=== PATIENT | female | born 1950 | race Caucasian/White ===

== ENCOUNTER → 2018-11-11 | Day surgery (SDC) | payer MEDICARE, OTHER ==
[2018-11-07 14:56] LABS: BASOPHILS # (AUTO) 0.1 (0.0-0.1); BASOPHILS % 0.6 % (0.0-1.0); EOSINOPHILS # (AUTO) 0.1 (0.0-0.4); EOSINOPHILS % 0.8 % (0.0-6.0); HEMOGLOBIN 12.7 g/dL (12.0-16.0); LYMPHOCYTES # (AUTO) 1.8 (1.0-3.2); LYMPHOCYTES % 21.4 % (18.0-39.1); MEAN CORPUSCULAR HEMOGLOBIN 29.5 pg (28-32); MEAN CORPUSCULAR HGB CONC 32.6 g/dL (31-35); MEAN CORPUSCULAR VOLUME 90.7 fL (81-99); MONOCYTES # (AUTO) 0.6 (0.2-0.8); MONOCYTES % 7.2 % (4.4-11.3); NEUTROPHILS # (AUTO) 5.9 (2.1-6.9); NEUTROPHILS % 69.5 % (38.7-80.0); PLATELET COUNT 345 x10e3/uL (140-360); RED CELL DISTRIBUTION WIDTH 12.9 % (11.7-14.4)
[~2018-11-11] MED LIST: ACID REFLUX MED PO; ADDERALL 10 MG10 MG PO; ADIPEX-P37.5 MG PO; BUPIVACAINE HCL 0.5% INJ 30 ML VIAL INJ ONE; CLONAZEPAM1 MG PO; FENTANYL CITRATE/PF 100MCG/2 ML INJ ONE; IOPAMIDOL 610MG/1ML 300 MG/ML VIAL IV ONE; LIDOCAINE HCL 1% LOCAL INJ 20 ML VIAL ONE; MECLIZINE HCL12.5 MG PO; MIDAZOLAM HCL 2 MG/2 ML VIAL ONE; NORCO 7.5-3251 EACH PO; PROPOFOL IV EMULSION 10 MG/ML 20 ML VIAL ONE; PROZAC20 MG PO; TIZANIDINE HCL2 M1 PO; TRIAMCINOLONE ACET 40 MG/ML VIAL ONE; VITAMIN B PLUS PO; VITAMIN C PO; VITAMIN D400 UNIT PO; VYVANSE70 MG PO; XANAX1 MG PO; ZOLOFT100 MG PO
[2018-11-11 07:50] VITALS: BP 109/51
--- NOTE | 2018-11-11 14:07 | Operative Report ---
DATE OF PROCEDURE: 11/11/2018 SURGEON: João Gutierrez MD PREOPERATIVE DIAGNOSES: Osteoarthritis of the right hip and spondylosis of the lumbar spine. POSTOPERATIVE DIAGNOSES: Osteoarthritis of the right hip and spondylosis of the lumbar spine. PROCEDURE: Fluoroscopic guided corticosteroid injection of the right hip. INDICATIONS: The patient is a 68-year-old lady, who has problems in her low back and her right hip. We have discussed the findings and options. The possibility of a right hip replacement was explained. In order to distinguish how much of her pain is coming from her hip versus her back, we have recommended a fluoroscopic-guided injection. The risks and benefits have been explained. She states she understands and wishes to proceed. PROCEDURE IN DETAIL: The patient was brought to the procedure room. She was given a MAC anesthetic. Her right hip was prepped and draped in a sterile manner. A preoperative time-out was performed. A C-arm image intensifier was used to assist in placing a spinal needle into the inferior recess of the right hip joint. A small amount of synovial fluid was aspirated from the joint. Further confirmation of intra-articular positioning was accomplished with an injection of a very small amount of radiopaque dye. A mixture of 9 mL of 0.5% Marcaine and 40 mg of Solu-Medrol were then injected into the hip joint. The needle was retrieved and a Band-Aid was applied. She was transported to the recovery room in stable condition. There was no blood loss and all needle and sponge counts were correct. João Gutierrez MD DR/MARY /[id number]
== END | disposition home or self-care (01) ==
LOC: OR 05:00
PROVIDERS: ATTEND Specialist
DX: M16.11 Unilateral primary osteoarthritis, right hip (principal); M47.816 Spondylosis without myelopathy or radiculopathy, lumbar region; J44.9 Chronic obstructive pulmonary disease, unspecified; K21.9 Gastro-esophageal reflux disease without esophagitis; E78.5 Hyperlipidemia, unspecified; F41.9 Anxiety disorder, unspecified; F31.9 Bipolar disorder, unspecified; F17.210 Nicotine dependence, cigarettes, uncomplicated; Z88.6 Allergy status to analgesic agent; Z88.2 Allergy status to sulfonamides; Z88.8 Allergy status to other drugs, medicaments and biological substances; Z01.810 Encounter for preprocedural cardiovascular examination; Z01.812 Encounter for preprocedural laboratory examination; Z68.31 Body mass index [BMI] 31.0-31.9, adult
CPT/HCPCS: 20610; 36415; 77002; 85025; 93005; J2250; J2704; J3010; J3301; Q9967; 76000; J2001

== ENCOUNTER 2018-11-27 07:38 | Emergency (ER) | payer MEDICARE, OTHER ==
[~2018-11-27] VITALS: Ht 157.5 cm; Wt 84.8 kg
[~2018-11-27 07:38] MED LIST changes: -BUPIVACAINE HCL 0.5% INJ 30 ML VIAL INJ ONE; -FENTANYL CITRATE/PF 100MCG/2 ML INJ ONE; -IOPAMIDOL 610MG/1ML 300 MG/ML VIAL IV ONE; -LIDOCAINE HCL 1% LOCAL INJ 20 ML VIAL ONE; -MIDAZOLAM HCL 2 MG/2 ML VIAL ONE; -PROPOFOL IV EMULSION 10 MG/ML 20 ML VIAL ONE; -TRIAMCINOLONE ACET 40 MG/ML VIAL ONE
[2018-11-27] MEDS ORDERED: FLUORESCEIN SOD(OPTH) 1 MG STRP OP ONE (08:00)
[2018-11-27] MEDS ORDERED: TETRACAINE HCL 0.5% OPTH SOLN 4 ML BTL OP ONE (08:00)
[2018-11-27] MEDS ORDERED: ERYTHROMYCIN (OPTH) 3.5 GM OINT OP ONE (08:30)
== END 2018-11-27 09:17 | disposition home or self-care (01) ==
LOC: ER 07:38
DX: H57.12 Ocular pain, left eye (principal); H16.012 Central corneal ulcer, left eye
CPT/HCPCS: 99283

== ENCOUNTER 2019-01-27 10:00 | Inpatient (IN) | payer MEDICARE, OTHER ==
[2019-01-26 13:09] LABS: BASOPHILS # (AUTO) 0.1 (0.0-0.1); BASOPHILS % 0.7 % (0.0-1.0); EOSINOPHILS # (AUTO) 0.1 (0.0-0.4); EOSINOPHILS % 1.2 % (0.0-6.0); HEMATOCRIT 44.2 % (34.2-44.1); HEMOGLOBIN 14.6 g/dL (12.0-16.0); LYMPHOCYTES # (AUTO) 2.6 (1.0-3.2); LYMPHOCYTES % 23.5 % (18.0-39.1); MEAN CORPUSCULAR HEMOGLOBIN 29.5 pg (28-32); MEAN CORPUSCULAR VOLUME 89.3 fL (81-99); MONOCYTES # (AUTO) 0.7 (0.2-0.8); MONOCYTES % 6.2 % (4.4-11.3); NEUTROPHILS # (AUTO) 7.6 (2.1-6.9); PLATELET COUNT 443 x10e3/uL (140-360); RED BLOOD COUNT 4.95 x10e6/uL (3.6-5.1)
--- NOTE | 2019-01-26 13:28 | Diagnostic Imaging Report ---
EXAMINATION: CHEST 2 VIEWS INDICATION: Pre-operative COMPARISON: None FINDINGS: LINES/TUBES:None LUNGS:Mildly hyperinflated lungs. No focal pneumonia or pulmonary edema. PLEURA:No pleural effusion or pneumothorax. MEDIASTINUM:The cardiomediastinal silhouette appears normal in size and shape. Atherosclerotic calcifications of the thoracic aorta. BONES/SOFT TISSUES:No acute osseous injury. ABDOMEN:No free air under the diaphragm. Status post cholecystectomy. IMPRESSION: No focal pneumonia or pulmonary edema. Signed by: Joel Puente MD on 01/26/2019 1:25 PM
[~2019-01-27] VITALS: Ht 157.5 cm; Wt 74.8 kg
[~2019-01-27 10:00] MED LIST changes: +ABILIFY5 MG PO; +ASPIR 8181 MG PO; +ATORVASTATIN CA20 MG PO; +EXCEDRIN MIGRA1 EAC3 PO; +FENOFIBRATE145 MG PO; +NICODERM CQ1 EAC1 TD; +ROPIVACAINE 246.25 MG, EPINEPHRINE HCL 1:1000 1ML 0.5 MG, CLONIDINE HCL 0.08 MG, KETORO... INJ ONE; +SUPER B COMPLE1 EACH PO; +SYMBICORT 16010.2 GM INH; +TUMERIC PO; +XIFAXAN550 MG PO
--- OUTSIDE RECORDS SUMMARY | 2019-01-27 10:20 | XMS REPORT ---
[facility] Address Unknown Phone Unavailable Care Team Providers Care [employer] Support Teacher Name Role Phone SABINE SANTANA Unavailable Unavailable Problems This patient has no known problems. Allergies, Adverse Reactions, Alerts This patient has no known allergies or adverse reactions. Medications This patient has no known medications. Results Test Description Test Time Test Comments Text Results Atomic Results Result Comments CHEST 2 VIEWS 2019-01-26 13:24:00 [facility] [address] [place] [address] Patient Name: GAGANDEEP CARLTON MR #: [id number] : 1950 Age/Sex: 68/F Req #: [id number] Adm Physician: Ordered by: SABINE SANTANA MD Report #: [id number] Location: OR Room/Bed: Procedure: [id number] DX/CHEST 2 VIEWS Exam Date: 01/26/19 Exam Time: 1300 REPORT STATUS: Signed EXAMINATION: CHEST 2 VIEWS INDICATION: Pre-operative COMPARISON: None FINDINGS: LINES/TUBES:None LUNGS:Mildly hyperinflated lungs. No focal pneumonia or pulmonary edema. PLEURA:No pleural effusion or pneumothorax. MEDIASTINUM:The cardiomediastinal silhouette appears normal in size and shape. Atherosclerotic calcifications of the thoracic aorta. BONES/SOFT TISSUES:No acute osseous injury. ABDOMEN:No free air under the diaphragm. Status post cholecystectomy. IMPRESSION: No focal pneumonia or pulmonary edema. Signed by: Misbah Puente MD on 01/26/2019 1:25 PM Dictated By: MISBAH UPENTE MD [id number] Transcribed By: EMMA on 01/26/19 1325 COPY TO: SABINE SANTANA MD
[2019-01-27 10:28] LABS: BASOPHILS # (AUTO) 0.1 (0.0-0.1); BASOPHILS % 0.5 % (0.0-1.0); EOSINOPHILS # (AUTO) 0.1 (0.0-0.4); EOSINOPHILS % 0.8 % (0.0-6.0); HEMATOCRIT 43.5 % (34.2-44.1); HEMOGLOBIN 14.4 g/dL (12.0-16.0); LYMPHOCYTES # (AUTO) 2.2 (1.0-3.2); LYMPHOCYTES % 18.1 % (18.0-39.1); MEAN CORPUSCULAR HEMOGLOBIN 29.6 pg (28-32); MEAN CORPUSCULAR HGB CONC 33.1 g/dL (31-35); MEAN CORPUSCULAR VOLUME 89.5 fL (81-99); MONOCYTES # (AUTO) 0.6 (0.2-0.8); MONOCYTES % 5.4 % (4.4-11.3); NEUTROPHILS # (AUTO) 8.9 (2.1-6.9); NEUTROPHILS % 74.8 % (38.7-80.0); PLATELET COUNT 418 x10e3/uL (140-360); RED BLOOD COUNT 4.86 x10e6/uL (3.6-5.1); RED CELL DISTRIBUTION WIDTH 12.9 % (11.7-14.4)
[2019-01-27] MEDS ORDERED: BUPIVACAINE 7.5MG/ML /DEXTROSE 82.5MG/ML 2 ML AMP INJ ONE (10:28)
[2019-01-27] MEDS ORDERED: BACITRACIN 50,000 UNIT VIAL ONE (10:53)
[2019-01-27] MEDS ORDERED: VANCOMYCIN HCL 1,000 MG ONE (10:53)
[2019-01-27] MEDS ORDERED: TRANEXAMIC ACID 1,000 MG/10 ML ML ONE (10:54)
[2019-01-27] MEDS ORDERED: SODIUM CHLORIDE 0.9% 500ML 500 ML ONE (10:54)
[2019-01-27] MEDS ORDERED: CELECOXIB 200 MG CAP ONE (11:05)
[2019-01-27] MEDS ORDERED: DEXAMETHASONE SOD PHOS 10 MG/1 ML VIAL ONE (11:05)
[2019-01-27] MEDS ORDERED: GABAPENTIN 300 MG CAP ONE (11:05)
[2019-01-27] MEDS ORDERED: CEFAZOLIN SOD 1 GM/NS 50ML 100 ML IV ONE (11:06)
[2019-01-27] MEDS ORDERED: HYDROCODONE/APAP 7.5MG-325MG 1 EA TAB PO PRN (13:00)
[2019-01-27] MEDS ORDERED: ONDANSETRON HCL INJ 2MG/ML 2ML 2 MG/ML VIAL IV PRN (13:00)
[2019-01-27] MEDS ORDERED: PROMETHAZINE HCL (IM) 25 MG/ML VIAL INJ PRN (13:00)
[2019-01-27] MEDS ORDERED: HYDROCODONE/APAP 5MG-325MG TAB PO PRN (13:00)
[2019-01-27] MEDS ORDERED: DOCUSATE SODIUM 100 MG CAP PO PRN (13:00)
[2019-01-27] MEDS ORDERED: ACETAMINOPHEN 650 MG SUPP PR PRN (13:00)
[2019-01-27] MEDS ORDERED: DIPHENHYDRAMINE HCL INJ 50 MG/ML VIAL IM/IV PRN (13:00)
--- NOTE | 2019-01-27 13:53 | NUR ---
received report from chris in [facility] awaiting for pt to arrive to floor
[2019-01-27 13:56] VITALS: BP 117/72
--- NOTE | 2019-01-27 13:56 | NUR ---
RECEIVED PT TO FLOOR AA0X3 PT IS IN NO S.S OF DISTRESS RIGHT HIP DRESSING DRY AND INTACT LEFT LEG HAS STOCKING WILL GET FOOT PUMPS FOR PT FAMILY IS AT BEDSIDE WILL CONTINUE TO MONITOR PT CLOSELY SIDE RAILSX2, BED WHEELS LOCKED, CALL LIGHT IS WITHIN EASY REACH INSTRUCTED TO CALL FOR ASSISTANCE IF NEEDED
--- NOTE | 2019-01-27 14:12 | Diagnostic Imaging Report ---
Pelvis, one view Clinical indications: Status post right total hip arthroplasty Comparison: None Findings: The patient is status post right total hip arthroplasty. Alignment is anatomic. No periprosthetic fractures are identified. Impression: Status post post right total hip arthroplasty. Signed by: Rhett Samuels MD on 01/27/2019 2:08 PM
[2019-01-27 14:19] VITALS: BP 117/72
[2019-01-27] MEDS ORDERED: ONDANSETRON HCL INJ 2MG/ML 2ML 2 MG/ML VIAL ONE (14:41)
[2019-01-27] MEDS ORDERED: DEXAMETHASONE SOD PHOS INJ 4 MG/ML VIAL ONE (14:41)
[2019-01-27] MEDS ORDERED: ACETAMINOPHEN 1000 MG/100 ML IV ONE (14:41)
[2019-01-27] MEDS: SODIUM CHLORIDE 0.9% 1000ML 1,000 ML IV SCH ×2 (15:07→22:59)
[2019-01-27] MEDS: KETOROLAC TROMETHAMINE 30 MG/ML VIAL IV PRN ×2 (15:33→23:00)
--- NOTE | 2019-01-27 15:45 | NUR ---
Called to confirm [facility] with signature [phone]. Left message for andrews to call back to confirm. Addendum: 01/27/19 at 1553 by Darling Briscoe CM spoke with martin at services who has received order, gave her updated phone number of [phone]
--- NOTE | 2019-01-27 15:56 | NUR ---
Spoke with [facility], they do have the order for walker, 3:1 commode and also a brace. Verified that DME will be delivered by 9.
--- NOTE | 2019-01-27 16:00 | NUR ---
PT VOIDED AFTER SURGERY IN BED. LINNENS CHANGED. PLACED PT ON DIAPER FOR INCONTINENCE
[2019-01-27 16:09] VITALS: BP 120/69
--- NOTE | 2019-01-27 16:24 | NUR ---
IMM explained to patient and daughter, daughter signed, original placed on chart, copy given to patient.
[2019-01-27] MEDS ORDERED: CELECOXIB 100 MG CAP PO SCH (17:00)
[2019-01-27] MEDS: ASPIRIN 325 MG TAB PO SCH (17:13)
[2019-01-27] MEDS: ACETAMINOPHEN 1000 MG/100 ML IV SCH ×2 (17:13→23:58)
[2019-01-27] MEDS: CELECOXIB 200 MG CAP PO SCH (17:13)
--- NOTE | 2019-01-27 17:40 | NUR ---
PT FAMILY PRESSED ON CODE BLUE , WHEN ENTERING ROOM PT WAS COUGHING UP HER DINNER. CODE CANCELLED. AFTER BACK THRUSTS PT STATED FEELING BETTER. NOTIFIED MD JOHNSON. CHEST X RAY ORDERED TO RULE OUT ASPIRATION PNA
[2019-01-27] MEDS ORDERED: MIDAZOLAM HCL 2 MG/2 ML VIAL ONE (18:42)
[2019-01-27] MEDS ORDERED: KETAMINE HCL INJ 50 MG/ML 10 ML VIAL ONE (18:42)
[2019-01-27] MEDS ORDERED: FENTANYL CITRATE/PF 100MCG/2 ML INJ ONE (18:42)
--- NOTE | 2019-01-27 18:58 | Diagnostic Imaging Report ---
EXAMINATION: CHEST SINGLE (PORTABLE) INDICATION: ^R/O ASPIRATION ^[id number] ^[id number] COMPARISON: 01/26/2019 FINDINGS: AP view TUBES and LINES: None. LUNGS: Lungs are well inflated. There is no evidence of pneumonia or pulmonary edema. Minimal left basilar subsegmental atelectasis. PLEURA: No pleural effusion or pneumothorax. HEART AND MEDIASTINUM: The cardiomediastinal silhouette is unremarkable. BONES AND SOFT TISSUES: No acute osseous lesion. Soft tissues are unremarkable. UPPER ABDOMEN: No free air under the diaphragm. IMPRESSION: No acute thoracic abnormality. Signed by: Dr. Ben Pretty MD on 01/27/2019 6:55 PM
[2019-01-27] MEDS: CEFAZOLIN SOD 1 GM/NS 50ML 50 ML IV SCH (19:51)
[2019-01-27 20:00] VITALS: BP 127/68
[2019-01-27] MEDS: HYDROCODONE/APAP 7.5MG-325MG 1 EA TAB PO PRN (20:45)
[2019-01-27] MEDS ORDERED: ZOLPIDEM TARTRATE 5 MG TAB PO PRN (21:00)
[2019-01-27 21:59] VITALS: BP 127/68
[2019-01-28] VITALS: BP 97/57
[2019-01-28] MEDS: CEFAZOLIN SOD 1 GM/NS 50ML 50 ML IV SCH ×2 (03:38→11:52)
[2019-01-28] MEDS: SODIUM CHLORIDE 0.9% 1000ML 1,000 ML IV SCH ×2 (03:39→08:55)
[2019-01-28 04:00] VITALS: BP 111/57
[2019-01-28] MEDS: ACETAMINOPHEN 1000 MG/100 ML IV SCH (05:15)
[2019-01-28 05:47] LABS: HEMATOCRIT 34.7 % (34.2-44.1); HEMOGLOBIN 11.2 g/dL (12.0-16.0)
--- NOTE | 2019-01-28 06:23 | Consultation ---
DATE OF CONSULTATION: REASON FOR CONSULTATION: Postop medical management. HISTORY OF PRESENT ILLNESS: The patient is a 68-year-old lady, status post right hip arthroplasty. She does complain of moderate pain in the right hip, but otherwise denies any fever, chills, nausea, vomiting, headache, shortness of breath, or dizziness. REVIEW OF SYSTEMS: She did have a slight complaint of eating too fast the night before, who felt like it got choked on, but she states since then she has been eating fine and chest x-ray post choking was negative for any type of aspiration. PAST MEDICAL HISTORY: Significant for gastritis and arthritis and hyperlipidemia and anxiety. MEDICATIONS: See MAR. ALLERGIES: SULFA AND PROCHLORPERAZINE. FAMILY HISTORY: Noncontributory. SOCIAL HISTORY: She smokes about 5-6 cigarettes a day. She is retired and . Nondrinker. PHYSICAL EXAMINATION: VITAL SIGNS: Temperature is 96.4, pulse 75, blood pressure 97/57, sats 95% on room air. GENERAL: She is no apparent distress, lying in bed. NECK: Supple. CARDIOVASCULAR: Regular rate and rhythm. LUNGS: Clear to auscultation bilaterally. ABDOMEN: Good bowel sounds. Soft, nontender. EXTREMITIES: No clubbing or cyanosis. NEUROLOGIC: Nonfocal. ASSESSMENT AND PLAN: 1. Anemia. Check CBC. 2. Right hip pain. Continue with postoperative care. 3. Leukocytosis. Continue to monitor p.r.n. 4. Reflux disease. We will start continue with proton pump inhibitor. 5. Hyperlipidemia. We will restart her cholesterol medicines at discharge. Please see also chart for full details. MD STACEY Anglin/MARY /[id number]
[2019-01-28 07:35] VITALS: BP 117/80
[2019-01-28] MEDS: ASPIRIN 325 MG TAB PO SCH (07:57)
[2019-01-28] MEDS: CELECOXIB 200 MG CAP PO SCH (07:57)
[2019-01-28] MEDS: HYDROCODONE/APAP 7.5MG-325MG 1 EA TAB PO PRN (08:00)
[2019-01-28 08:14] VITALS: BP 117/80
--- NOTE | 2019-01-28 10:30 | NUR ---
Assessment: No spiritual/emotional concerns expressed. Pt's daughter at bedside. Intervention: Provided hospitality and empathic listening. Provided information on how to reach metal ceiling builder, if needed. Outcome: Pt & daughter expressed appreciation for visit. No need for follow up indicated at this time. YAJAIRA BUSTAMANTE [employer] Spiritual Care Department O: [phone] Pager: [phone] ([phone] number calling from)
[2019-01-28] MEDS ORDERED: ONDANSETRON HCL 4 MG ORAL DISINTEGRATING TAB PO PRN (11:45)
[2019-01-28 11:49] VITALS: BP 112/86
--- NOTE | 2019-01-28 12:49 | NUR ---
DISCHARGE INSTRUCTIONS AND PRESCRIPTIONS GIVEN PT HAS EQUIPMENT AT BEDSIDE IV DC PRESSURE DRESSING APPLIED AND TAPED PT RIGHT HIP DRESSING REMAINS DRY AND INTACT PT IS NOW OFF UNIT TO HOME
[2019-01-28] MEDS ORDERED: ACETAMINOPHEN 1000 MG/100 ML IV PRN ×2 (13:00)
--- NOTE | 2019-01-28 14:50 | Operative Report ---
DATE OF PROCEDURE: 01/28/2019 SURGEON: João Gutierrez MD HANDBAG FRAMES INSPECTOR: Dany Jones, certified PA. PREOPERATIVE DIAGNOSIS: Osteoarthritis, right hip. POSTOPERATIVE DIAGNOSIS: Osteoarthritis, right hip. PROCEDURE: Right total hip arthroplasty. INDICATIONS: The patient is a 68-year-old lady, who has advanced osteoarthritis of her right hip. She has failed conservative management and would like to proceed with a right total hip replacement. The risks and benefits of the procedure have all been discussed. All of her questions have been answered. She states she understands and wishes to proceed. PROCEDURE IN DETAIL: The patient was brought to the operating room and given a spinal anesthetic. She received prophylactic antibiotics and tranexamic acid in the holding area. She was positioned in the left lateral decubitus position. Her right hip was prepped and draped in a sterile manner. A preoperative time-out was performed. A posterior approach was made to the right hip. Hemostasis was obtained with electrocautery. A deep self-retaining Charnley retractor was placed. Care was taken to avoid injury to the sciatic nerve. The posterior capsule was carefully exposed. Further hemostasis was obtained with electrocautery. The short external rotators and the posterior capsule were released. The hip was dislocated and an oscillating saw was used to resect the femoral head. Complete loss of articular cartilage was noted. Acetabular retractors were carefully placed. The remnant of the labrum was removed with a long-handled knife. A 46 mm reamer was then used to establish the true floor of the acetabulum. Throughout this portion of the case, the hip was thoroughly irrigated several times with a shower tip pulsatile lavage and a spray mixture of diluted vancomycin and tobramycin spray. A 53 mm reamer accomplished bleeding hemispherical cancellous bone. A [employer] OsseoTi shell with a 54 mm outer diameter was then impacted into place. Fixation was augmented with a single 20 mm screw placed into the ilium. Good bone quality was encountered. The socket was then further irrigated. A highly cross-linked polyethylene liner with a 36 mm inner diameter was then seated into place. Care was taken to make sure that there was no evidence of soft tissue interposition. The socket was packed with a moistly soaked lap sponge. Attention was directed towards the proximal femur. A box cutting osteotome and taper pin reamer were used to establish entry to the femoral canal. Once again, good bone quality was encountered. The Taperloc broaches were impacted. A size 7 stem accomplished good rotational stability and canal fill. A trial reduction was performed. A standard neck and 36 mm head was felt to provide appropriate soft tissue balancing, confucianism of limb length and stability through a full arc of motion. The trial implants were removed. The hip was further irrigated with a shower tip pulsatile lavage. The Taperloc stem was impacted into place. The trunnion was irrigated and cleaned and dried. The ceramic head and standard neck were seated onto the stem. A final reduction was performed. Once again, the hip was put through a full arc of motion and noted to have good stability. The posterior capsule was repaired with #2 Ethibond. The piriformis was reattached using #2 Ethibond. A 500 mg of vancomycin powder was sprinkled into the deep aspect of the wound. The fascia was then closed with interrupted #2 Ethibond. The skin was closed with subcuticular Vicryl and janie. A sterile Aquacel bandage was applied. The patient was returned to the supine position and transported to the recovery room in stable condition. Estimated blood loss was 150 mL. All needle and sponge counts were correct. João Gutierrez MD DR/MARY /[id number]
== END 2019-01-28 12:47 | disposition home or self-care (01) | DRG 470 ==
LOC: OR 10:00 → PACU V 13:01 → MED/SURG 13:56
PROVIDERS: ADMIT Specialist; ATTEND Specialist
PROC: 0SR904A Replacement of Right Hip Joint with Ceramic on Polyethylene Synthetic Substitute, Uncemented, Open Approach (ICD-10-PCS; principal; 2019-01-28)
DX: M16.11 Unilateral primary osteoarthritis, right hip (principal); J45.909 Unspecified asthma, uncomplicated; K29.70 Gastritis, unspecified, without bleeding; M47.816 Spondylosis without myelopathy or radiculopathy, lumbar region; F17.210 Nicotine dependence, cigarettes, uncomplicated; K21.9 Gastro-esophageal reflux disease without esophagitis; E78.5 Hyperlipidemia, unspecified; Z88.2 Allergy status to sulfonamides; Z88.8 Allergy status to other drugs, medicaments and biological substances; D64.9 Anemia, unspecified
CPT/HCPCS: 36415; 71045; 71046; 72170; 85014; 85018; 85025; 86850; 86900; 86920; 97139; J0171; J0690; J1100; J1885; J2250; J2405; J2795; J3010; J3370; J7030; J7040

== ENCOUNTER 2019-02-06 15:26 | Emergency (ER) | payer MEDICARE, OTHER ==
[~2019-02-06] VITALS: Ht 157.5 cm; Wt 74.8 kg
[~2019-02-06 15:26] MED LIST changes: -ROPIVACAINE 246.25 MG, EPINEPHRINE HCL 1:1000 1ML 0.5 MG, CLONIDINE HCL 0.08 MG, KETORO... INJ ONE
[2019-02-06] MEDS ORDERED: ONDANSETRON HCL INJ 2MG/ML 2ML 2 MG/ML VIAL IV ONE ×2 (15:29→17:07)
[2019-02-06] MEDS ORDERED: SODIUM CHLORIDE 0.9% 1000ML 1,000 ML IV STA ×2 (15:29→17:07)
--- NOTE | 2019-02-06 16:30 | Diagnostic Imaging Report ---
EXAMINATION: HIP RIGHT 2-3 VW (+/- PELVIS) INDICATION: Trauma COMPARISON: None FINDINGS: No acute fracture or dislocation. Status post right total hip replacement. Line and appears anatomic. Hardware appears intact. No periprostatic lucency. Mild degenerative changes of the hopi left hip joint. Fluid within the pelvis. Nonobstructive bowel gas pattern. Mild gluteal enthesopathy. IMPRESSION: No acute osseous injury. Intact hardware. Signed by: Joel Puente MD on 02/06/2019 4:27 PM
--- NOTE | 2019-02-06 16:32 | Diagnostic Imaging Report ---
EXAMINATION: CHEST 2 VIEWS INDICATION: Trauma COMPARISON: Chest radiograph 01/27/2019 FINDINGS: LINES/TUBES:EKG leads overlie the chest. LUNGS:The lungs are well-inflated. No focal consolidation or pulmonary edema. PLEURA:No pleural effusion or pneumothorax. MEDIASTINUM:The cardiomediastinal silhouette appears normal in size and shape. Atherosclerotic calcifications of the thoracic aorta. BONES/SOFT TISSUES:No acute osseous injury. ABDOMEN:No free air under the diaphragm. IMPRESSION: No focal pneumonia or pulmonary edema Signed by: Joel Puente MD on 02/06/2019 4:28 PM
[2019-02-06 16:55] LABS: BASOPHILS # (AUTO) 0.1 (0.0-0.1); BASOPHILS % 0.5 % (0.0-1.0); EOSINOPHILS # (AUTO) 0.2 (0.0-0.4); EOSINOPHILS % 1.2 % (0.0-6.0); HEMATOCRIT 32.6 % (34.2-44.1); HEMOGLOBIN 10.6 g/dL (12.0-16.0); MEAN CORPUSCULAR HEMOGLOBIN 29.4 pg (28-32); MEAN CORPUSCULAR HGB CONC 32.5 g/dL (31-35); MEAN CORPUSCULAR VOLUME 90.6 fL (81-99); MONOCYTES # (AUTO) 0.9 (0.2-0.8); MONOCYTES % 7.3 % (4.4-11.3); NEUTROPHILS # (AUTO) 9.5 (2.1-6.9); NEUTROPHILS % 74.5 % (38.7-80.0); PLATELET COUNT 600 x10e3/uL (140-360); RED CELL DISTRIBUTION WIDTH 13.4 % (11.7-14.4)
[2019-02-06 17:05] LABS: INR 0.96; PARTIAL THROMBOPLASTIN TIME 28.1 seconds (23.8-35.5); PROTHROMBIN TIME 13.3 seconds (11.9-14.5)
[2019-02-06 17:15] LABS: ALANINE AMINOTRANSFERASE 11 IU/L (0-55); ALBUMIN 2.9 g/dL (3.5-5.0); ALBUMIN/GLOBULIN RATIO 0.8 (0.8-2.0); ALKALINE PHOSPHATASE 73 IU/L (40-150); ANION GAP 14.5 mmol/L (8-16); BLOOD UREA NITROGEN 20 mg/dL (7-26); BUN/CREATININE RATIO 32 (6-25); CALCIUM 9.7 mg/dL (8.4-10.2); CARBON DIOXIDE 27 mmol/L (22-29); CHLORIDE 101 mmol/L (98-107); CREATINE KINASE 34 IU/L (29-168); CREATININE, SERUM 0.62 mg/dL (0.57-1.11); EST GLOMERULAR FILTRATION RATE > 60 ML/MIN (60-); GLUCOSE 102 mg/dL (74-118); POTASSIUM 3.5 mmol/L (3.5-5.1); SODIUM 139 mmol/L (136-145)
[2019-02-06] MEDS ORDERED: HYDROMORPHONE 1MG/1ML INJ IV ONE (17:15)
[2019-02-06 17:39] LABS: BILIRUBIN,URINE NEGATIVE (NEGATIVE); CLARITY,URINE SL CLOUDY (CLEAR); COLOR,URINE YELLOW (YELLOW); KETONES,URINE NEGATIVE (NEGATIVE); LEUKOCYTE ESTERASE ,URINE SMALL (NEGATIVE); NITRITE,URINE NEGATIVE (NEGATIVE); PROTEIN,URINE DIPSTICK NEGATIVE (NEGATIVE); URINE UROBILINOGEN 0.2 mg/dL (0.2 - 1)
[2019-02-06 17:48] LABS: AMORPHOUS SEDIMENT,URINE FEW (FEW); BACTERIA,URINE FEW /HPF; CALCIUM OXALATE CRYSTALS,UR FEW (FEW); EPITHELIAL CELLS,URINE FEW /LPF; MUCUS,URINE FEW (RARE)
[2019-02-06] MEDS ORDERED: CEFTRIAXONE SOD 1 GM/NS 50 ML 50 ML IV ONE (19:00)
--- NOTE | 2019-02-06 19:20 | Diagnostic Imaging Report ---
CT chest pulmonary embolism protocol CPT code: 81994 INDICATION: ^S/P HIP SURGERY, TACHYCARDIA, POS D-DIMER, PE PROTOCOL TECHNIQUE: Thin collimation axial images obtained through the level of the pulmonary arteries with additional imaging through the chest following the uneventful administration of 100 cc of low osmolar, nonionic intravenous contrast. Images reconstructed into coronal and sagittal MIPs for complete evaluation of the tortuous and overlapping pulmonary vascular structures and to reduce patient radiation dose. RADIATION DOSE: Total DLP: 517.9 mGy*cm Estimated effective dose: (DLP x 0.015 x size factor) mSv CTDIvol has been reviewed. It is below the limits set by the Radiation Protocol Committee (RPC). Dose reduction techniques used: Automated exposure control, adjustment of the mAs and/or kVp according to patient size, standardized low-dose protocol, and/or iterative reconstruction technique. COMPARISON: None. FINDINGS: Pulmonary artery: No filling defects are appreciated within the main, left, right, lobar or visualized segmental pulmonary arteries to suggest embolism. Main pulmonary artery measures 2.1 cm. Aorta: The thoracic aorta is not aneurysmal. No evidence for dissection. Lymph nodes: No enlarged axillary or supraclavicular lymph nodes. No enlarged mediastinal or hilar lymph nodes. Calcified right hilar lymph nodes. Thyroid: Normal in size. No nodules. Mediastinum: Diffuse esophageal wall thickening without discrete mass. No hiatal hernia. The heart is normal in size with coronary artery calcifications. No pericardial effusion. Lungs: Right Lung: Mild centrilobular emphysema. No infiltrate or mass. Left Lung: Mild centrilobular emphysema. No infiltrates or mass. Pleura: No pleural effusion or pleural based mass. Abdomen: Tiny calcified granulomata in the spleen. The gallbladder is absent. There are several calculi in the left kidney measuring 5 mm or less.. Bones: Mild degenerative changes of the spine. No focal osseous lesions. IMPRESSION: 1. No evidence of pulmonary embolus or aortic dissection. 2. Diffuse esophageal wall thickening may be secondary to reflux. No hiatal hernia. 3. Centrilobular emphysema. No infiltrates. 4. Nonobstructing calculi in the left kidney. Calcified granulomata in the spleen. Signed by: Dr. Luisa Elkins MD on 02/06/2019 7:17 PM
[2019-02-06] MEDS ORDERED: LIDOCAINE 4% PATCH TP ONE (19:30)
[2019-02-06 20:11] VITALS: BP 113/91
[2019-02-06] MEDS ORDERED: SODIUM CHLORIDE 0.9% 50ML 50 ML ONE (21:55)
[2019-02-06] MEDS ORDERED: IOPAMIDOL 370 MG/ML 200 ML INFUS..BTL INJ ONE (21:56)
== END 2019-02-06 20:35 | disposition home or self-care (01) ==
LOC: ER 15:26
DX: M25.551 Pain in right hip (principal); Z96.641 Presence of right artificial hip joint; I10 Essential (primary) hypertension; J44.9 Chronic obstructive pulmonary disease, unspecified; E78.5 Hyperlipidemia, unspecified; K21.9 Gastro-esophageal reflux disease without esophagitis; F41.9 Anxiety disorder, unspecified; F32.9 Major depressive disorder, single episode, unspecified; Z79.82 Long term (current) use of aspirin; Z87.891 Personal history of nicotine dependence
CPT/HCPCS: 36415; 71046; 71260; 73502; 80053; 81001; 82550; 82553; 83880; 84484; 85025; 85379; 85610; 85730; 87086; 87186; 93005; 99284; J0696; J1170; J2405; J7030; Q9967

== ENCOUNTER 2021-04-10 08:05 | Observation (INO) | payer MEDICARE, OTHER ==
[2021-04-06 15:21] LABS: BASOPHILS # (AUTO) 0.1 (0.0-0.1); BASOPHILS % 0.7 % (0.0-1.0); EOSINOPHILS # (AUTO) 0.1 (0.0-0.4); EOSINOPHILS % 0.7 % (0.0-6.0); HEMATOCRIT 43.8 % (34.2-44.1); HEMOGLOBIN 13.7 g/dL (12.0-16.0); LYMPHOCYTES % 23.6 % (18.0-39.1); MEAN CORPUSCULAR HEMOGLOBIN 28.2 pg (28-32); MEAN CORPUSCULAR HGB CONC 31.3 g/dL (31-35); MEAN CORPUSCULAR VOLUME 90.3 fL (81-99); MONOCYTES # (AUTO) 0.5 (0.2-0.8); MONOCYTES % 6.1 % (4.4-11.3); NEUTROPHILS # (AUTO) 5.8 (2.1-6.9); NEUTROPHILS % 68.5 % (38.7-80.0); PLATELET COUNT 496 x10e3/uL (140-360); RED BLOOD COUNT 4.85 x10e6/uL (3.6-5.1); RED CELL DISTRIBUTION WIDTH 13.7 % (11.7-14.4)
[~2021-04-10] VITALS: Ht 157.5 cm; Wt 77.1 kg
[~2021-04-10 08:05] MED LIST changes: +ROPIVACAINE 246.25 MG, EPINEPHRINE HCL 1:1000 1ML 0.5 MG, CLONIDINE HCL 0.08 MG, KETORO... INJ ONE
[2021-04-10] MEDS ORDERED: SODIUM CHLORIDE 0.9% 50ML 100 ML ONE (08:28)
[2021-04-10] MEDS ORDERED: SODIUM CHLORIDE 0.9% 500ML 500 ML ONE (08:53)
[2021-04-10] MEDS ORDERED: TRANEXAMIC ACID 1,000 MG/10 ML ML ONE (08:54)
[2021-04-10] MEDS ORDERED: Vancomycin IV 1,000 MG ONE (08:54)
[2021-04-10] MEDS ORDERED: CELECOXIB 200 MG CAP ONE (09:10)
[2021-04-10] MEDS ORDERED: GABAPENTIN 300 MG CAP ONE (09:11)
[2021-04-10] MEDS ORDERED: DEXAMETHASONE SOD PHOS 10 MG/1 ML VIAL ONE (09:11)
[2021-04-10] MEDS ORDERED: ACETAMINOPHEN 1000 MG/100 ML 100 ML IV ONE (09:58)
[2021-04-10] MEDS ORDERED: MANNITOL 25% 12.5GM/50ML 50 ML ONE (10:38)
[2021-04-10] MEDS ORDERED: PHENYLEPHRINE HCL 1% 10 MG/ML VIAL ONE (12:10)
[2021-04-10] MEDS ORDERED: PROPOFOL IV EMULSION 10 MG/ML 20 ML VIAL ONE (12:10)
[2021-04-10] MEDS ORDERED: POVIDONE IODINE 0.05% 0.05 % ML PO ONE (12:10)
[2021-04-10] MEDS ORDERED: ONDANSETRON HCL INJ 2MG/ML 2ML 2 MG/ML VIAL ONE (12:10)
[2021-04-10] MEDS ORDERED: GLYCOPYRROLATE INJ 0.2 MG/ML VIAL ONE (12:10)
[2021-04-10] MEDS ORDERED: LIDOCAINE HCL 2% LOCAL INJ 5 ML SDV VIAL INJ ONE (12:10)
[2021-04-10] MEDS ORDERED: HYDROCODONE/APAP 5MG-325MG TAB PO PRN (12:30)
[2021-04-10] MEDS ORDERED: ZOLPIDEM TARTRATE 5 MG TAB PO PRN (12:30)
[2021-04-10] MEDS ORDERED: DOCUSATE SODIUM 100 MG CAP PO PRN (12:30)
[2021-04-10] MEDS ORDERED: KETOROLAC TROMETHAMINE 30 MG/ML VIAL IV PRN (12:30)
[2021-04-10] MEDS ORDERED: ACETAMINOPHEN 650 MG SUPP PR PRN (12:30)
[2021-04-10] MEDS ORDERED: DIPHENHYDRAMINE HCL INJ 50 MG/ML VIAL IV PRN (12:30)
[2021-04-10] MEDS ORDERED: ONDANSETRON HCL INJ 2MG/ML 2ML 2 MG/ML VIAL IV PRN (12:30)
[2021-04-10] MEDS ORDERED: MIDAZOLAM HCL 2 MG/2 ML VIAL ONE (12:33)
[2021-04-10] MEDS ORDERED: KETAMINE HCL INJ 50 MG/ML 10 ML VIAL ONE (12:33)
[2021-04-10] MEDS ORDERED: FENTANYL CITRATE/PF 100MCG/2 ML INJ ONE (12:33)
[2021-04-10 15:20] VITALS: BP 102/88
[2021-04-10 15:31] VITALS: BP 102/88
[2021-04-10 15:45] VITALS: BP 102/88
[2021-04-10] MEDS: SODIUM CHLORIDE 0.9% 1000ML 1,000 ML IV SCH ×2 (16:34→22:02)
[2021-04-10] MEDS: CELECOXIB 200 MG CAP PO SCH (16:34)
[2021-04-10] MEDS: ASPIRIN 325 MG TAB PO SCH (16:34)
[2021-04-10] MEDS: Cefazolin 1 GM in SODIUM CHLORIDE 0.9% 50ML 50 ML IV SCH (17:11)
[2021-04-10 20:00] VITALS: BP 99/59
[2021-04-11] VITALS: BP 94/53
[2021-04-11] MEDS: Cefazolin 1 GM in SODIUM CHLORIDE 0.9% 50ML 50 ML IV SCH ×2 (01:22→08:58)
[2021-04-11] MEDS ORDERED: CLONAZEPAM 1 MG TAB PO PRN (03:45)
[2021-04-11] MEDS: HYDROCODONE/APAP 7.5MG-325MG 1 EA TAB PO PRN ×2 (03:57→08:27)
[2021-04-11 04:00] VITALS: BP 90/60
[2021-04-11 06:50] LABS: HEMATOCRIT 31.7 % (34.2-44.1); HEMOGLOBIN 9.8 g/dL (12.0-16.0)
[2021-04-11] MEDS: SODIUM CHLORIDE 0.9% 1000ML 1,000 ML IV SCH (07:19)
[2021-04-11] MEDS ORDERED: ONDANSETRON HCL 4 MG ORAL DISINTEGRATING TAB PO PRN (07:45)
[2021-04-11 07:58] VITALS: BP 105/58
[2021-04-11 08:21] VITALS: BP 105/58
[2021-04-11] MEDS: ASPIRIN 325 MG TAB PO SCH (08:24)
[2021-04-11] MEDS: CELECOXIB 200 MG CAP PO SCH (08:24)
[2021-04-11] MEDS ORDERED: ASPIRIN 81 MG CHEW TAB PO SCH (09:00)
[2021-04-11] MEDS ORDERED: FENOFIBRATE 160MG TAB PO SCH (09:00)
[2021-04-11] MEDS ORDERED: ACETAMINOPHEN 1000 MG/100 ML IV PRN (12:30)
[2021-04-11] MEDS ORDERED: ATORVASTATIN 20 MG TAB PO SCH (21:00)
== END 2021-04-11 09:33 | disposition home or self-care (01) ==
LOC: OR 08:05 → PACU V 12:50 → MED/SURG 15:10
PROVIDERS: ADMIT Specialist; ATTEND Specialist
DX: M16.12 Unilateral primary osteoarthritis, left hip (principal); K58.9 Irritable bowel syndrome, unspecified; K21.9 Gastro-esophageal reflux disease without esophagitis; K29.70 Gastritis, unspecified, without bleeding; F41.9 Anxiety disorder, unspecified; J44.9 Chronic obstructive pulmonary disease, unspecified; E78.5 Hyperlipidemia, unspecified; Z01.810 Encounter for preprocedural cardiovascular examination; Z01.812 Encounter for preprocedural laboratory examination; Z01.818 Encounter for other preprocedural examination; Z88.2 Allergy status to sulfonamides; Z88.8 Allergy status to other drugs, medicaments and biological substances; Z20.822 Contact with and (suspected) exposure to COVID-19; D64.9 Anemia, unspecified; I95.9 Hypotension, unspecified
CPT/HCPCS: 27130; 36415 ×2; 71046; 72170; 85014; 85018; 85025; 86850; 86900; 86920; 93005; 94799 ×2; 96360; 97110; 97116; 97161; 97530; C1713 ×3; C1776 ×2; G0378 ×2; J0131; J0171; J0690 ×2; J1100; J1885; J2001; J2150; J2250; J2370; J2405; J2704; J2795; J3010; J3370; J7030; J7040; U0002

== ENCOUNTER 2022-06-12 12:51 | Emergency (ER) | payer MEDICARE, OTHER ==
[~2022-06-12] VITALS: Ht 157.5 cm; Wt 77.1 kg
[~2022-06-12 12:51] MED LIST changes: +BIOTIN 800 MCG1 EACH PO; +PROZAC40 MG PO; -ROPIVACAINE 246.25 MG, EPINEPHRINE HCL 1:1000 1ML 0.5 MG, CLONIDINE HCL 0.08 MG, KETORO... INJ ONE; +VESICARE5 MG PO; +VITAMIN E400 UNI1 PO
[2022-06-12 14:56] VITALS: BP 116/77
== END 2022-06-12 15:47 | disposition home or self-care (01) ==
LOC: ER 12:56
DX: S02.2XXA Fracture of nasal bones, initial encounter for closed fracture (principal); W18.2XXA Fall in (into) shower or empty bathtub, initial encounter; Y93.E1 Activity, personal bathing and showering; Y92.89 Other specified places as the place of occurrence of the external cause; J44.9 Chronic obstructive pulmonary disease, unspecified; F41.9 Anxiety disorder, unspecified; K21.9 Gastro-esophageal reflux disease without esophagitis; G47.30 Sleep apnea, unspecified
CPT/HCPCS: 70450; 70486; 72125; 99284